=== PATIENT | female | born 1930 | race Hispanic/Latino ===

== ENCOUNTER 2018-07-01 18:30 | Emergency (ER) | payer MEDICARE, OTHER ==
[~2018-07-01] VITALS: Ht 160 cm; Wt 93.0 kg
[~2018-07-01 18:30] MED LIST: ACTOS30 MG PO; AMLODIPINE BESY10 MG PO; ASPIR 8181 MG PO; EVISTA60 MG PO; GLUCOPHAGE1000 MG PO; JANUVIA100 MG PO; LANTUS100 UNITS/ SQ; LEVOTHYROXINE50 MCG PO; LOSARTAN POTAS100 MG PO; PANTOPRAZOLE SO40 MG PO; STARLIX120 MG PO; VITAMIN B12 PO; VITAMIN D2 PO
--- NOTE | 2018-07-01 19:53 | Diagnostic Imaging Report ---
History:Fell down Comparison studies: None Technique: Axial images were obtained from the skull base to the vertex. Coronal and sagittal images reconstructed from the axial data. Intravenous contrast: None Findings: Scalp/skull: An acute right frontal scalp hematoma is not associated with subcutaneous emphysema or with hyperdense foreign bodies. No underlying fractures. Extra-axial spaces: No masses. No fluid collections. Brain sulci: Moderately prominent. Ventricles: Moderate compensatory dilatation. No hydrocephalus. Parenchyma: No abnormal densities. No masses, hemorrhage, acute or chronic cortical vascular insults. Sellar/suprasellar region: No abnormalities. Craniocervical junction: Patent foramen magnum. No Chiari one malformation. Incidental findings: Atherosclerotic calcifications in the carotid siphons and vertebral arteries. Impression: 1. Acute right frontal scalp hematoma. 2. No fractures. 3. No acute intracranial abnormalities. 4. Moderate age-related generalized volume loss. Signed by: Dr. Tim Garza M.D. on 07/01/2018 7:50 PM
--- NOTE | 2018-07-01 20:07 | Diagnostic Imaging Report ---
History: Fall Comparison studies: None Technique: Axial images were obtained through the cervical region.. Coronal and sagittal images reconstructed from the axial data.. Intravenous contrast: None Findings: Fractures: None in the cervical region. Not clear whether a 2.5 mm well-corticated bone fragment inferomedial to the left occipital condyle (series 601, image 21), not seen on the right, is a subtle fracture or a congenital unfused ossicle. Soft tissues: No gross abnormalities. Atlantoaxial articulation: Moderately degenerated. Alignment: Normal lordosis. No scoliosis. Cervicomedullary junction: No abnormalities. The foramen magnum is patent. Vertebrae: No infection or neoplasm. Degenerative changes: Mildly degenerated disks at C4-5 and C5-6. Moderate facet arthrosis from C2 to C7 on the right and C5-6 on the left. Foraminal stenosis mild the right at C3-4, right at C5-6 due to facet and uncovertebral arthrosis. No significant spinal canal stenosis. Incidental atherosclerotic calcifications in the carotid bulbs and carotid siphons and vertebral arteries. IMPRESSION: 1. No acute cervical spine abnormalities. 2. Not clear whether a 2.5 mm well-corticated bone fragment inferior medial to the left occipital condyle is a subtle fracture or a congenital unfused ossicle. 3. Cannot adequately evaluate for ligament, spinal cord and or vascular abnormalities. 4. Degenerative changes as described Signed by: Dr. Tim Garza M.D. on 07/01/2018 8:03 PM
--- NOTE | 2018-07-01 20:24 | Diagnostic Imaging Report ---
EXAM: KNEE RIGHT THREE VIEWS DATE: 07/01/2018 6:43 PM INDICATION: \S\wrist pain COMPARISON: None FINDINGS: Mild to moderate degenerative changes are present in the knee with narrowing of the medial compartment. No acute fracture subluxation identified. There is no joint effusion. IMPRESSION: Degenerative changes as above. Signed by: Dr. Daniel Haskins MD on 07/01/2018 8:21 PM
--- NOTE | 2018-07-01 20:25 | Diagnostic Imaging Report ---
EXAM: WRIST COMPLETE RIGHT DATE: 07/01/2018 6:43 PM INDICATION: \S\wrist pain COMPARISON: None FINDINGS: Minimally impacted distal radial metaphyseal fracture with no distinct intra-articular extension. No displacement or angulation present. Moderate degenerative changes of the carpus and moderate vascular calcifications present. IMPRESSION: Nondisplaced distal radial metaphyseal fracture. Signed by: Dr. Daniel Haskins MD on 07/01/2018 8:21 PM
--- NOTE | 2018-07-01 20:26 | Diagnostic Imaging Report ---
EXAM: RIBS UNILAT W/CXR DATE: 07/01/2018 6:43 PM INDICATION: \S\wrist pain COMPARISON: None FINDINGS: The heart is not enlarged. Evaluation for pneumothorax limited given underpenetration and body habitus. No definite pneumothorax identified. Right lateral fourth and fifth nondisplaced rib fractures present. Degenerative changes shoulder and spine present. Cholecystectomy clips noted. IMPRESSION: Nondisplaced right fourth and fifth rib fractures. Signed by: Dr. Daniel Haskins MD on 07/01/2018 8:23 PM
[2018-07-01] MEDS ORDERED: HYDROCODONE/APAP 7.5MG-325MG 1 EA TAB PO STA (21:56)
== END 2018-07-01 22:19 | disposition home or self-care (01) ==
LOC: ER 18:30
DX: S00.83XA Contusion of other part of head, initial encounter (principal); S22.41XA Multiple fractures of ribs, right side, initial encounter for closed fracture; S52.514A Nondisplaced fracture of right radial styloid process, initial encounter for closed fracture; S80.211A Abrasion, right knee, initial encounter; W01.0XXA Fall on same level from slipping, tripping and stumbling without subsequent striking against object, initial encounter; Y92.008 Other place in unspecified non-institutional (private) residence as the place of occurrence of the external cause; I10 Essential (primary) hypertension; E11.9 Type 2 diabetes mellitus without complications; E07.9 Disorder of thyroid, unspecified
CPT/HCPCS: 70450; 71101; 72125; 99284

== ENCOUNTER 2018-08-14 13:00 | Outpatient (RCR) | payer MEDICARE, OTHER | END 2018-08-18 | LOC: OT 13:00 | PROVIDERS: ATTEND Specialist | DX: S52.531A Colles' fracture of right radius, initial encounter for closed fracture (principal); S72.115A Nondisplaced fracture of greater trochanter of left femur, initial encounter for closed fracture; Z96.642 Presence of left artificial hip joint; R26.89 Other abnormalities of gait and mobility; R26.2 Difficulty in walking, not elsewhere classified; M62.81 Muscle weakness (generalized) | CPT/HCPCS: 97010; 97022 ×2; 97110 ×6; 97112; 97162; 97165; G8981; G8982 ==

== ENCOUNTER 2018-09-04 11:00 | Outpatient (RCR) | payer MEDICARE, OTHER | END 2018-09-18 | LOC: OT 11:00 | PROVIDERS: ATTEND Specialist | DX: Z96.642 Presence of left artificial hip joint (principal); S52.531A Colles' fracture of right radius, initial encounter for closed fracture; S72.115A Nondisplaced fracture of greater trochanter of left femur, initial encounter for closed fracture; M62.81 Muscle weakness (generalized); R26.89 Other abnormalities of gait and mobility; R26.2 Difficulty in walking, not elsewhere classified | CPT/HCPCS: 97022 ×6; 97110 ×7; 97164; G8987; G8988 ==